=== PATIENT | male | born 1955 | race Caucasian/White ===

== ENCOUNTER 2022-03-02 09:32 | Outpatient (CLI) | payer MEDICARE, OTHER, SELFPAY ==
[2022-03-02 14:24] LABS: Chloride* 101 mmol/L (96-114)
[2022-03-02 14:25] LABS: Potassium* 4.6 mmol/L (3.6-5.1); Sodium* 138 mmol/L (135-149)
[2022-03-02 14:27] LABS: Alanine Aminotransferase* 23 U/L (4-50); Carbon Dioxide* 27 mmol/L (20-32); Cholesterol* 151 mg/dL (90-199); Creatinine* 0.9 mg/dL (0.5-1.5); Estimated Glomerular Filt Rate 94 ml/min
[2022-03-02 14:28] LABS: Blood Urea Nitrogen* 22 mg/dL (7-30); Glucose* 113 mg/dL (60-115); HDL Cholesterol* 35 mg/dL (>=40); LDL Cholesterol Calculated 93 mg/dL (<100); Triglycerides* 114 mg/dL (40-149)
== END 2022-03-02 09:33 | disposition home or self-care (01) ==
PROVIDERS: PCP Family Medicine; Visit Provider Family Medicine
DX: Z00.00 Encounter for general adult medical examination without abnormal findings (principal); E78.5 Hyperlipidemia, unspecified; I10 Essential (primary) hypertension; Z12.5 Encounter for screening for malignant neoplasm of prostate
CPT/HCPCS: 80048; 80061; 84153; 84460

== ENCOUNTER 2022-03-25 09:31 | Outpatient (CLI) | payer MEDICARE, OTHER, SELFPAY ==
[2022-03-25 15:00] LABS: SARS PCR* Negative SARS-CoV-2 (Negative)
== END 2022-03-25 09:32 | disposition home or self-care (01) ==
LOC: FBOREF 09:32
PROVIDERS: PCP Family Medicine; Visit Provider Family Medicine
DX: Z20.822 Contact with and (suspected) exposure to COVID-19 (principal)
CPT/HCPCS: 87635

== ENCOUNTER 2022-03-26 11:44 | Outpatient (CLI) | payer MEDICARE, OTHER, SELFPAY | END 2022-03-26 11:45 | disposition home or self-care (01) | PROVIDERS: PCP Family Medicine; Visit Provider Internal Medicine | DX: Z12.11 Encounter for screening for malignant neoplasm of colon (principal); K63.5 Polyp of colon; K57.30 Diverticulosis of large intestine without perforation or abscess without bleeding | CPT/HCPCS: 45380; 88305; J2250; J3010 ==

== ENCOUNTER 2023-06-28 08:34 | Outpatient (CLI) | payer MEDICARE, OTHER, SELFPAY | END 2023-06-28 08:35 | disposition home or self-care (01) | PROVIDERS: PCP Family Medicine; Visit Provider Family Medicine | DX: E78.5 Hyperlipidemia, unspecified (principal); I10 Essential (primary) hypertension; Z12.5 Encounter for screening for malignant neoplasm of prostate | CPT/HCPCS: 80048; 80061; 84460; G0103 ==

== ENCOUNTER 2024-12-06 07:16 | Outpatient (CLI) | payer MEDICARE, OTHER, SELFPAY | END 2024-12-06 07:17 | disposition home or self-care (01) | PROVIDERS: PCP Family Medicine; Visit Provider Family Medicine | DX: E78.2 Mixed hyperlipidemia (principal); I10 Essential (primary) hypertension; Z12.5 Encounter for screening for malignant neoplasm of prostate | CPT/HCPCS: 80048; 80061; 84460; G0103 ==